=== PATIENT | male | born 1940 | race Caucasian/White ===

== ENCOUNTER 2016-08-15 08:19 | Inpatient (IN) | payer MEDICARE, OTHER ==
--- NOTE | 2016-08-15 09:11 | ER Document Report ---
ED General - General Mode of Arrival: Ambulatory Information source: Patient TRAVEL OUTSIDE OF THE [place] IN LAST 30 DAYS: No - HPI Patient complains to provider of: Left Facial Numbness Onset: Yesterday Onset/Duration: Sudden, Persistent Associated symptoms: Headache. denies: Chest pain, Shortness of breath, Weakness <CATIE PEREZ - Last Filed: 08/15/16 13:22> <ISAAC CIFUENTES - Last Filed: 08/15/16 21:22> - General Chief Complaint: Numbness of Face Stated Complaint: LEFT SIDE FACE NUMBNESS Notes: Patient is a 76-year-old male presenting to the emergency department concerned of left-sided facial numbness onset yesterday upon awakening. Patient denies any weakness, loss of consciousness, chest pain, or any difficulty breathing. Patient also admits to headache, intermittent dizziness, and some brief left eye blurred vision. Patient's was concerned because she states that the patient told her that he fell, but patient does not recall telling her this. (CATIE PEREZ) - Related Data Allergies/Adverse Reactions: No Known Allergies Allergy (Verified 08/15/16 08:22) Home Medications: Current Home Medications Albuterol Sulfate [Proair HFA] 1 puff IH Q4HP PRN 08/15/16 [History] Aspirin [Aspirin EC] 81 mg PO DAILY 08/15/16 [History] Citalopram Hydrobromide [Celexa 20 mg Tablet] 20 mg PO QHS 08/15/16 [History] Diazepam [Valium 5 mg Tablet] 5 mg PO DAILYP PRN 08/15/16 [History] Diazepam [Valium 5 mg Tablet] 5 mg PO QHS 08/15/16 [History] Esomeprazole Magnesium [Nexium] 40 mg PO QPM 08/15/16 [History] Losartan Potassium [Cozaar 25 mg Tablet] 25 mg PO DAILY 08/15/16 [History] Oxycodone HCl 20 mg PO Q6HP PRN 08/15/16 [History] Pravastatin Sodium [Pravachol] 40 mg PO QHS 08/15/16 [History] Prazosin HCl [Minipress] 2 mg PO QHS 08/15/16 [History] Temazepam [Restoril] 30 mg PO QHS 08/15/16 [History] Past Medical History - General Information source: Patient, Relative - Social History Smoking Status: Unknown if Ever Smoked Family History: Reviewed & Not Pertinent Patient has suicidal ideation: No Patient has homicidal ideation: No - Past Medical History Cardiac Medical History: Reports: Hx Heart Attack, Hx Hypercholesterolemia, Hx Hypertension Pulmonary Medical History: Reports: Hx COPD Renal/ Medical History: Denies: Hx Peritoneal Dialysis GI Medical History: Reports: Hx Gastroesophageal Reflux Disease Past Surgical History: Reports: Hx Abdominal Surgery - 3 hernias, Hx Appendectomy, Hx Orthopedic Surgery - Immunizations Hx Diphtheria, Pertussis, Tetanus Vaccination: Yes <CATIE PEREZ - Last Filed: 08/15/16 13:22> Review of Systems - Review of Systems Constitutional: No symptoms reported EENT: See HPI, Blurred vision - Left eye, now resolved Cardiovascular: See HPI, Dizziness. denies: Chest pain Respiratory: No symptoms reported. denies: Short of breath Gastrointestinal: No symptoms reported Genitourinary: No symptoms reported Male Genitourinary: No symptoms reported Musculoskeletal: No symptoms reported Skin: No symptoms reported Hematologic/Lymphatic: No symptoms reported Neurological/Psychological: See HPI, Headaches, Numbness - Left sided face. denies: Lost consciousness -: Yes All other systems reviewed and negative <CATIE PEREZ - Last Filed: 08/15/16 13:22> Physical Exam - General General appearance: Appears well, Alert - HEENT Head: Normocephalic, Atraumatic Eyes: Normal Pupils: PERRL - Respiratory Respiratory status: No respiratory distress Chest status: Nontender Breath sounds: Normal Chest palpation: Normal - Cardiovascular Rhythm: Regular Heart sounds: Normal auscultation Murmur: No - Abdominal Inspection: Normal Distension: No distension Bowel sounds: Normal Tenderness: Nontender - Back Back: Normal, Nontender - Extremities General upper extremity: Normal inspection, Nontender General lower extremity: Normal inspection, Nontender - Neurological Neuro grossly intact: Yes Cognition: Normal Aga Coma Scale Eye Opening: Spontaneous Strawberry Coma Scale Verbal: Oriented Strawberry Coma Scale Motor: Obeys Commands Strawberry Coma Scale Total: 15 Speech: Normal Cranial nerves: Normal Motor strength normal: LUE, RUE, LLE, RLE 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 - Psychological Associated symptoms: Normal affect, Normal mood - Skin Skin Temperature: Warm Skin Moisture: Dry Skin Color: Normal <CATIE PEREZ - Last Filed: 08/15/16 13:22> <ISAAC CIFUENTES - Last Filed: 08/15/16 21:22> - Vital signs Vitals: Temp Pulse Resp BP Pulse Ox 98.0 F 66 18 171/77 H 99 08/15/16 08:24 08/15/16 08:24 08/15/16 08:24 08/15/16 08:24 08/15/16 08:24 - Neurological Notes: No facial droop (CATIE PEREZ) Course - Laboratory Result Diagrams: 08/15/16 09:34 08/15/16 09:34 <CATIE PEREZ - Last Filed: 08/15/16 13:22> - Laboratory Result Diagrams: 08/15/16 09:34 08/15/16 09:34 <ISAAC CIFUENTES - Last Filed: 08/15/16 21:22> - Re-evaluation Re-evalutation: 08/15/16 12:16 I personally performed the services described in the documentation, reviewed and edited the documentation which was dictated to my scribe in my presence, and it accurately records my words and actions. Patient presents emergency Department with left-sided facial numbness tingling. States he woke up yesterday morning with those symptoms along with when he looked in the ear facial droop went to the urgent care they told him to follow back up today which she did when he went there today the doctor apologize and said to go straight to the ER. On examination he has slight decreased sensation no facial droop no slurred speech negative upper and lower extremity strength no acute weakness. Heart lungs abdomen no acute findings. Persistent symptoms to the left side of the face. Spoke with the hospice will admit him inpatient stroke workup further assessment and evaluation no acute Gonzalez's palsy on examination. (ISAAC CIFUENTES) - Vital Signs Vital signs: Temp Pulse Resp BP Pulse Ox 98.2 F 62 20 175/77 H 99 08/15/16 20:09 08/15/16 20:09 08/15/16 20:09 08/15/16 20:09 08/15/16 20:09 Critical Care Note - Critical Care Note Total time excluding time spent on procedures (mins): 45 <ISAAC CIFUENTES - Last Filed: 08/15/16 21:22> Discharge <CATIE PEREZ - Last Filed: 08/15/16 13:22> - Discharge Admitting Provider: Hospitalist Unit Admitted: IMCU <ISAAC CIFUENTES - Last Filed: 08/15/16 21:22> - Discharge Clinical Impression: CVA (cerebral vascular accident) Qualifiers: CVA mechanism: unspecified Qualified Code(s): I63.9 - Cerebral infarction, unspecified Scribe Documentation - Scribe Written by Scribe:: Catie Perez 08/15/2016 0911 acting as scribe for :: Devon <CATIE PEREZ - Last Filed: 08/15/16 13:22>
[2016-08-15 09:52] LABS: ABSOLUTE EOSINOPHILS # (AUTO) 0.3 10^3/uL (0.0-0.6); ABSOLUTE LYMPHOCYTES (AUTO) 1.5 10^3/uL (0.5-4.7); ABSOLUTE MONOCYTES (AUTO) 0.6 10^3/uL (0.1-1.4); ABSOLUTE NEUT (AUTO) 3.2 10^3/uL (1.7-8.2); BASOPHILS % (AUTO) 0.7 % (0-2); EOSINOPHILS % (AUTO) 5.3 % (0-6); HEMATOCRIT 43.1 % (37.9-51.0); HEMOGLOBIN 14.5 g/dL (13.5-17.0); HGB HCT DIFFERENCE 0.4; LYMPHOCYTES % (AUTO) 26.3 % (13-45); MEAN CORPUSCULAR HGB CONC 33.6 g/dL (32.0-36.0); MEAN CORPUSCULAR VOLUME 92 fl (80-97); RED BLOOD COUNT 4.67 10^6/uL (4.35-5.55); RED CELL DISTRIBUTION WIDTH 12.8 % (11.5-14.0); SEGMENTED NEUTROPHILS % (AUTO) 56.7 % (42-78); WHITE BLOOD COUNT 5.6 10^3/uL (4.0-10.5)
[2016-08-15 10:05] LABS: ANION GAP 10 (5-19); BLOOD UREA NITROGEN 18 mg/dL (7-20); CALCIUM 10.2 mg/dL (8.4-10.2); CARBON DIOXIDE 27 mmol/L (22-30); CHLORIDE 106 mmol/L (98-107); CREATINE KINASE 81 U/L (55-170); CREATININE RESULT 0.94 mg/dL (0.52-1.25); GLUCOSE 106 mg/dL (75-110); POTASSIUM 4.7 mmol/L (3.6-5.0); SODIUM 143.4 mmol/L (137-145)
[2016-08-15 10:17] LABS: TROPONIN I < 0.012 ng/mL
--- NOTE | 2016-08-15 13:11 | EKG REPORT ---
SEVERITY:- OTHERWISE NORMAL ECG - SINUS OR ECTOPIC ATRIAL RHYTHM : Confirmed by: Nicole Adkins MD 15-Aug-2016 13:11:13
[2016-08-15] MEDS ORDERED: HYDROCODONE/ACETAMINOPHEN 10-325 MG TABLET PO PRN (13:56)
[2016-08-15] MEDS ORDERED: MAGNESIUM HYDROXIDE SUSP 30 ML UDCUP PO PRN (13:56)
[2016-08-15] MEDS ORDERED: ACETAMINOPHEN 325 MG TABLET PO PRN (13:56)
[2016-08-15] MEDS ORDERED: HYDROCODONE/ACETAMINOPHEN 5-325 MG TABLET PO PRN (13:56)
[2016-08-15] MEDS ORDERED: ONDANSETRON HCL INJ/PF 4 MG/2 ML SDV IV PRN (13:56)
[2016-08-15] MEDS ORDERED: ENOXAPARIN SODIUM INJ 40 MG/0.4 ML DISP.SYRIN SUBCUT ONE (15:00)
--- NOTE | 2016-08-15 17:55 | PDOC H&P ---
History of Present Illness Admission Date/PCP: 08/15/16 13:56 IRMA DILL MD Patient complains of: Facial weakness and numbness History of Present Illness: SOFIA SHUKLA is a 76 year old male presents to the emergency department from home almost 24 hours after the onset of symptoms including facial numbness and tingling. He describes a loss of sensation across the left part of his face stopping midline just under his nose but includes the left side of his tongue and cheek. He denies vision changes but notes loss of hearing on the left as well. He denies rash, trauma including head strike, slurred speech, difficulty swallowing, coughing choking gagging, fevers, chills, chest pain, palpitations. Evaluation in the emergency department CT scan is negative but his symptoms persist and so we were asked to admit him for CVA evaluation. Past Medical History Cardiac Medical History: Reports: Myocardial Infarction, Hyperlipidema, Hypertension Pulmonary Medical History: Reports: Chronic Obstructive Pulmonary Disease (COPD) , Pneumonia Endocrine Medical History: Reports: Diabetes Mellitus Type 2 GI Medical History: Reports: Gastroesophageal Reflux Disease Psychiatric Medical History: Reports: Depression Past Surgical History Past Surgical History: Reports: Appendectomy, Orthopedic Surgery Social History Smoking Status: Former Smoker Last Time Smoked: 1969 Frequency of Alcohol Use: None Hx Recreational Drug Use: No Drugs: None Hx Prescription Drug Abuse: No - Advance Directive Resuscitation Status: Full Code Family History Family History: CAD - Mom in her 80s, CVA - Dad in his 70s Parental Family History Reviewed: Yes Children Family History Reviewed: Yes Sibling(s) Family History Reviewed.: Yes Medication/Allergy Home Medications: Atorvastatin Calcium 40 mg PO QHS 09/21/14 Azelastine HCl 2 spray NS BID 09/21/14 Carisoprodol 1 tab PO Q8H 09/21/14 Citalopram Hydrobromide [Celexa] 1 tab PO QHS 09/21/14 Diazepam [Valium 5 mg Tablet] 2.5 mg PO BID 09/21/14 Diazepam [Valium 5 mg Tablet] 5 mg PO QHS 09/21/14 Finasteride 5 mg PO DAILY 09/21/14 Ginkgo Biloba 120 mg PO DAILY 09/21/14 Lisinopril/Hydrochlorothiazide [Lisinopril-Hctz 10-12.5 mg Tab] 1 each PO DAILY 09/21/14 Omeprazole [Prilosec] 20 mg PO DAILY 09/21/14 Oxycodone HCl 15 mg PO Q6H 09/21/14 Prednisone [Deltasone 20 mg Tablet] 3 tab PO DAILY 4 Days 09/21/14 Sennosides/Docusate Sodium [Stool Soft-Stimulant Lax Tab] 1 each PO DAILY Temazepam 30 mg PO QHS 09/21/14 Allergies/Adverse Reactions: No Known Allergies Allergy (Verified 08/15/16 08:22) Review of Systems Constitutional: PRESENT: headache(s) - Left-sided, focal just above the amish described as dull aching, nonradiating without exacerbating or alleviating factors. ABSENT: chills, fever(s), weight gain, weight loss Eyes: ABSENT: visual disturbances Ears: PRESENT: as per HPI, hearing changes Cardiovascular: ABSENT: chest pain, dyspnea on exertion, edema, orthropnea, palpitations Respiratory: ABSENT: cough, hemoptysis Gastrointestinal: ABSENT: abdominal pain, constipation, diarrhea, hematemesis, hematochezia, nausea, vomiting Genitourinary: ABSENT: dysuria, hematuria Musculoskeletal: ABSENT: joint swelling Integumentary: ABSENT: rash, wounds Neurological: PRESENT: as per HPI. ABSENT: abnormal gait, abnormal speech, confusion, dizziness, focal weakness, syncope Psychiatric: ABSENT: anxiety, depression Endocrine: ABSENT: cold intolerance, heat intolerance, polydipsia, polyuria Hematologic/Lymphatic: ABSENT: easy bleeding, easy bruising Physical Exam Vital Signs: Temp Pulse Resp BP Pulse Ox 97.7 F 58 L 18 139/75 H 100 08/15/16 16:02 08/15/16 16:02 08/15/16 16:02 08/15/16 16:02 08/15/16 16:02 Intake & Output 08/14/16 08/15/16 08/16/16 06:59 06:59 06:59 Weight 70.76 kg PHYSICAL EXAM GENERAL: NAD; well developed, well nourished; no obese; alert and oriented to person, place, time, situation HEENT: normocephalic, atraumatic; EOMI, PERRLA, no conjunctival injection, no scleral icterus; oral mucosa moist, normal dentition; neck supple, no LAD, normal ROM; loss of hearing in Left ear RESPIRATORY: no accessory muscle use, no increased WOB, good air entry bilaterally; no wheezes, rales, rhonchi; no inspiratory crackles CARDIO: no JVD; RRR; no systolic murmur; no tachycardia VASCULAR: no carotid bruit; no abdominal bruit; no pallor; 2+ radial, DP pulse ; normal capillary refill GI: soft; nondistended; normal bowel sounds; no hepato spleno megaly; no rebound, rigidity, guarding; nontender NEURO: normal patella reflexes; normal motor function; no gait abnl's; no dysarthria; no nystagmus; tongue protrudes midline; normal finger to nose; able to cross midline with finger to ear; decreased sensation of the left scalp, face , tongue. Posterior oropharynx elevates symmetrically with phonation. MSK: 5/5 strength; normal ROM hips; ambulatory without assistance; no tenderness EXTREMITIES: no calf tender; no palpable cords in calf; no clubbing, cyanosis , pedal edema PSYCH: normal affect, normal mood SKIN: warm; moist; no petechiae; no telengectasias; no jaundice; no rash Results Impressions: Head CT 08/15/16 09:12 IMPRESSION: NORMAL BRAIN CT WITHOUT CONTRAST. Chest X-Ray 08/15/16 09:14 IMPRESSION: NO ACUTE RADIOGRAPHIC FINDING IN THE CHEST. Assessment & Plan - Diagnosis (1) CVA (cerebral vascular accident) Qualifiers: CVA mechanism: unspecified Qualified Code(s): I63.9 - Cerebral infarction, unspecified Is this a current diagnosis for this admission?: YesPlan: Admit to inpatient IMCU for evaluation of likely ischemic or embolic CVA given the persistent symptoms. My suspicion is high for a central lesion in her about the adebayo affecting cranial nerves. He takes a baby aspirin daily so will change to Plavix and start empiric high-dose statin therapy. Check MRI of the brain without contrast, carotid Dopplers, echocardiogram, am lipids, B12 levels and hemoglobin A1c, mag and phosphorus looking for correctable metabolic causes. Allow permissive hypertension for the first 48 hours. There are no focal motor deficits to warrant physical or occupational therapy at this time. (2) Hypertension Qualifiers: Hypertension type: essential hypertension Qualified Code(s): I10 - Essential (primary) hypertension Is this a current diagnosis for this admission?: YesPlan: Allow permissive hypertension. Treat only pressures greater than 190/100 or any that become symptomatic. (3) Hyperlipidemia Qualifiers: Hyperlipidemia type: unspecified Qualified Code(s): E78.5 - Hyperlipidemia, unspecified Is this a current diagnosis for this admission?: YesPlan: Check lipid panel in the morning. Start empiric high-dose statin therapy. - Time Time Spent: 50 to 70 Minutes Medications reviewed and adjusted accordingly: Yes Anticipated discharge: Home Within: within 48 hours - Inpatient Certification Medical Necessity: Significant Comorbidiites Make Outpatient Treatment Too Risky , Need For Continuous Telemetry Monitoring, Need for Neurological Checks, Risk of Complication if Not Cared For in Hospital
[2016-08-15] MEDS ORDERED: ATORVASTATIN CALCIUM 80 MG TABLET PO SCH (22:00)
[2016-08-15] MEDS: FAMOTIDINE 20 MG TABLET PO SCH (22:08)
[2016-08-16 05:03] LABS: ABSOLUTE EOSINOPHILS # (AUTO) 0.3 10^3/uL (0.0-0.6); ABSOLUTE MONOCYTES (AUTO) 0.8 10^3/uL (0.1-1.4); ABSOLUTE NEUT (AUTO) 3.8 10^3/uL (1.7-8.2); BASOPHILS % (AUTO) 0.5 % (0-2); EOSINOPHILS % (AUTO) 4.5 % (0-6); HEMATOCRIT 42.6 % (37.9-51.0); HEMOGLOBIN 14.5 g/dL (13.5-17.0); HGB HCT DIFFERENCE 0.9; LYMPHOCYTES % (AUTO) 28.6 % (13-45); MEAN CORPUSCULAR HEMOGLOBIN 31.4 pg (27.0-33.4); MEAN CORPUSCULAR VOLUME 92 fl (80-97); RED BLOOD COUNT 4.62 10^6/uL (4.35-5.55); RED CELL DISTRIBUTION WIDTH 13.1 % (11.5-14.0); SEGMENTED NEUTROPHILS % (AUTO) 55.4 % (42-78); WHITE BLOOD COUNT 6.9 10^3/uL (4.0-10.5)
[2016-08-16 05:19] LABS: CHOLESTEROL 173.71 mg/dL (0-200); Direct HDL 44 mg/dL (>40); TRIGLYCERIDES 196 mg/dL (<150)
[2016-08-16 05:30] LABS: DIRECT LDL 89 mg/dL (<100)
[2016-08-16 05:39] LABS: VLDL CHOLESTEROL 39.2 mg/dL (10-31)
[2016-08-16 07:48] LABS: PHOSPHORUS 3.6 mg/dL (2.5-4.5)
[2016-08-16] MEDS ORDERED: ENOXAPARIN SODIUM INJ 40 MG/0.4 ML DISP.SYRIN SUBCUT SCH (08:00)
[2016-08-16] MEDS ORDERED: CLOPIDOGREL BISULFATE 75 MG TABLET PO SCH (10:00)
[2016-08-16] MEDS: FAMOTIDINE 20 MG TABLET PO SCH (11:07)
--- NOTE | 2016-08-16 13:51 | XCELERA REPORT ---
[address] [address] Transthoracic Echocardiogram Report Name: SOFIA SHUKLA Age: 76 yrs Gender: Male : 1940 Patient Status: Inpatient Patient Location: [id number]\304\[id number] Study Date: 08/16/2016 08:48 AM Height: 65 in Weight: 156 lb BSA: 1.8 m2 Procedure: A complete two-dimensional transthoracic echocardiogram was performed (2D, M-mode, spectral and color flow Doppler). The study was technically adequate with some images being suboptimal in quality. Reason For Study: cva Ordering Physician: REINALDO SKAGGS Performed By: Kimberly Galaviz Interpretation Summary The left ventricular ejection fraction is normal. Doppler measurements suggest impaired left ventricular relaxation, which is associated with grade I/IV or mild diastolic dysfunction There is normal left ventricular wall thickness. The left ventricle is grossly normal size. Wall motion cannot be accurately commented on, but no definite regional wall motion abnormalities noted. The right ventricular systolic function is normal. The right atrium is normal. The left atrial size is normal. There is a mild amount of mitral regurgitation There is no mitral valve stenosis. No aortic regurgitation is present. There is no aortic valve stenosis There is a trace or physiologic amount of tricuspid regurgitation Tricuspid regurgitation jet envelope not well defined to measure RV systolic pressure accurately. The aortic root is not well visualized. The inferior vena cava appeared normal and decreased > 50% with respiration (RAP 5-10 mmHg) There is no pericardial effusion. No definite cardiac source of CVA/TIA noted on this particular trans- thoracic study. Consider MARIEL if clinically indicated. May consider mobile cardiac telemetry monitoring (MCT) for ruling out transient AFIB. MMode/2D Measurements \T\ Calculations RVDd: 2.7 cm LVIDd: 4.8 cm FS: 46.4 % Ao root diam: 3.0 cm IVSd: 0.77 cm LVIDs: 2.6 cm EDV(Teich): 109.3 ml LVPWd: 0.84 cm ESV(Teich): 24.4 ml Ao root area: 6.9 cm2 EF(Teich): 77.7 % LA dimension: 3.1 cm Doppler Measurements \T\ Calculations MV E max kristi: MV P1/2t max kristi: Ao V2 max: LV V1 max P.5 cm/sec 65.8 cm/sec 115.8 cm/sec 2.9 mmHg MV A max kristi: MV P1/2t: 85.5 msec Ao max PG: LV V1 max: 55.2 cm/sec 5.4 mmHg 85.7 cm/sec MV E/A: 1.2 MVA(P1/2t): 2.6 cm2 MV dec slope: 225.6 cm/sec2 PA V2 max: TR max kristi: 66.5 cm/sec 241.4 cm/sec PA max PG: TR max P.3 mmHg 1.8 mmHg Left Ventricle The left ventricle is grossly normal size. There is normal left ventricular wall thickness. The left ventricular ejection fraction is normal. Doppler measurements suggest impaired left ventricular relaxation, which is associated with grade I/IV or mild diastolic dysfunction. Wall motion cannot be accurately commented on, but no definite regional wall motion abnormalities noted. Right Ventricle The right ventricle is normal in size, thickness and function. There is normal right ventricular wall thickness. The right ventricular systolic function is normal. Atria The right atrium is normal. The left atrial size is normal. Interarterial septum not well visualized and not well dopplered. Cannot comment on ASD/PFO presence. Mitral Valve The mitral valve leaflets are sclerotic, but show no functional abnormalities. There is no mitral valve stenosis. There is a mild amount of mitral regurgitation. Aortic Valve The aortic valve is mildly calcified. There is no aortic valve stenosis. No aortic regurgitation is present. Tricuspid Valve The tricuspid valve is not well visualized, but is grossly normal. There is no tricuspid stenosis. There is a trace or physiologic amount of tricuspid regurgitation. Tricuspid regurgitation jet envelope not well defined to measure RV systolic pressure accurately. Pulmonic Valve The pulmonic valve is not well visualized. Great Vessels The aortic root is not well visualized. The inferior vena cava appeared normal and decreased > 50% with respiration (RAP 5-10 mmHg). Effusions There is no pericardial effusion. Incidental Findings No definite cardiac source of CVA/TIA noted on this particular trans- thoracic study. Consider MARIEL if clinically indicated. May consider mobile cardiac telemetry monitoring (MCT) for ruling out transient AFIB. : REINALDO SKAGGS > Sera Calvo
[2016-08-16 15:08] VITALS: BP 139/75
--- NOTE | 2016-08-16 15:12 | PDOC DISCHARGE SUMMARY ---
General - Admit/Disc Date/PCP Admission Date/Primary Care Provider: 08/15/16 13:56 IRMA DILL MD Discharge Date: 08/16/16 - Discharge Diagnosis (1) CVA (cerebral vascular accident) Is this a current diagnosis for this admission?: YesSummary: This seems the most likely diagnosis and I suspect it is simply too small for detection on MRI, given his deficits it would have to be central/cord lesion near or on cranial nerve which could easily be missed by MRI. Nevertheless, his symptoms are impoving and nearly resolved and we did find stenosis of the L> R carotid arteries (see doppler report). After much discussion with he and his , we have elected to escalate his care to Plavix and max dose of statin daily, f/u with his PCP for monitoring of his condition including LFTs and lipids and outpt referral to vascular surgery for evaluation of the 50-69% Left carotid stenosis and f/u carotid dopplers in 6-12 months. he is stable for d/c home at this time. due to the high stress nature of his work, I recommend he continue to convalesce at home through the weekend and return to work on Sunday , 08/21 without restrictions. he was counseled regarding s/s of stroke that should warrant immediate return to the ED for tPa evaluation and treatment, they state understanding and willingness to comply. (2) Hypertension Is this a current diagnosis for this admission?: YesSummary: well controlled on current regimen, goal is <125/85. (3) Hyperlipidemia Is this a current diagnosis for this admission?: YesSummary: lipid panel really not that bad, see results in chart, but will increase statin to max dose to stabilize plaque already formed. - Additional Information Resuscitation Status: Full Code Discharge Diet: Cardiac Discharge Activity: Activity As Tolerated - ok to return to work Monday 08/21 without restrictions Home Medications: Albuterol Sulfate [Proair HFA] 1 puff IH Q4HP PRN 08/15/16 Citalopram Hydrobromide [Celexa 20 mg Tablet] 20 mg PO QHS 08/15/16 Diazepam [Valium 5 mg Tablet] 5 mg PO DAILYP PRN 08/15/16 Diazepam [Valium 5 mg Tablet] 5 mg PO QHS 08/15/16 Esomeprazole Magnesium [Nexium] 40 mg PO QPM 08/15/16 Losartan Potassium [Cozaar 25 mg Tablet] 25 mg PO DAILY 08/15/16 Oxycodone HCl 20 mg PO Q6HP PRN 08/15/16 Prazosin HCl [Minipress] 2 mg PO QHS 08/15/16 Temazepam [Restoril] 30 mg PO QHS 08/15/16 Acetaminophen [Tylenol 325 mg Tablet] 650 mg PO Q4HP PRN tablet 08/16/16 Clopidogrel Bisulfate [Plavix 75 mg Tablet] 75 mg PO DAILY #30 tablet 08/16/16 Pravastatin Sodium [Pravachol] 80 mg PO QHS #30 08/16/16 History of Present Illness Patient complains of: left face weakness and numbness History of Present Illness: presents to the emergency department from home almost 24 hours after the onset of symptoms including facial numbness and tingling. Hospital Course Hospital Course: He describes a loss of sensation across the left part of his face stopping midline just under his nose but includes the left side of his tongue and cheek. He denies vision changes but notes loss of hearing on the left as well. He denies rash, trauma including head strike, slurred speech, difficulty swallowing , coughing choking gagging, fevers, chills, chest pain, palpitations. Evaluation in the emergency department CT scan is negative but his symptoms persist and so we were asked to admit him for CVA evaluation. his symptoms gradually improved and he never showed any motor deficits and no speech difficulties therefore no therapy indicated/warranted. he underwent extensive evaluation including MRI, CT head, carotid dopplers, echo and multiple lab tests looking for a source or preventable cause and really none found other than bilat L>R carotid artery stenosis. As a result, and after long discussion involving R&B, he has elected to escalate his care to Plavix and max dose statin. he symptoms improved dramatically and he is stable for d/c home at this time. fu wit [facility] in one week for outpt referral to vascular surgery; return to the ED <3hrs symptom onset for tPa eval/tx as indicated. he and his express no concerns to me about going home at this time. rx/s provided for the necessary meds. Physical Exam Vital Signs: Temp Pulse Resp BP Pulse Ox 98.6 F 71 18 126/69 H 98 08/16/16 11:05 08/16/16 14:00 08/16/16 12:00 08/16/16 12:00 08/16/16 12:00 Intake & Output 08/15/16 08/16/16 08/17/16 06:59 06:59 06:59 Intake Total 245 695 Balance 245 695 Weight 69.6 kg PHYSICAL EXAM GENERAL: NAD; well developed, well nourished; no obese; alert and oriented to person, place, time, situation HEENT: normocephalic, atraumatic; EOMI, PERRLA, no conjunctival injection, no scleral icterus; oral mucosa moist, neck supple, no LAD, normal ROM; persistent loss of hearing in Left ear RESPIRATORY: no accessory muscle use, no increased WOB, good air entry bilaterally; no wheezes, rales, rhonchi; no inspiratory crackles CARDIO: no JVD; RRR; no systolic murmur; no tachycardia VASCULAR: no carotid bruit; no abdominal bruit; no pallor; 2+ radial, DP pulse ; normal capillary refill GI: soft; nondistended; normal bowel sounds; no hepato spleno megaly; no rebound, rigidity, guarding; nontender NEURO: normal patella reflexes; normal motor function; no gait abnl's; no dysarthria; no nystagmus; tongue protrudes midline; normal finger to nose; able to cross midline with finger to ear; decreased sensation of the left scalp, face , tongue. Posterior oropharynx elevates symmetrically with phonation. MSK: 5/5 strength; normal ROM hips; ambulatory without assistance; no tenderness EXTREMITIES: no calf tender; no palpable cords in calf; no clubbing, cyanosis , pedal edema PSYCH: normal affect, normal mood SKIN: warm; moist; no petechiae; no telengectasias; no jaundice; no rash Results Laboratory Results: 08/16/16 04:02 08/16/16 08/16/16 08/16/16 04:02 04:02 04:02 WBC 6.9 RBC 4.62 Hgb 14.5 Hct 42.6 MCV 92 MCH 31.4 MCHC 34.0 RDW 13.1 Plt Count 230 Seg Neutrophils % 55.4 Lymphocytes % 28.6 Monocytes % 11.0 Eosinophils % 4.5 Basophils % 0.5 Absolute Neutrophils 3.8 Absolute Lymphocytes 2.0 Absolute Monocytes 0.8 Absolute Eosinophils 0.3 Absolute Basophils 0.0 Phosphorus 3.6 Magnesium Triglycerides 196 H Cholesterol 173.71 LDL Cholesterol Direct 89 VLDL Cholesterol 39.2 H HDL Cholesterol 44 Vitamin B12 581.0 08/16/16 04:02 WBC RBC Hgb Hct MCV MCH MCHC RDW Plt Count Seg Neutrophils % Lymphocytes % Monocytes % Eosinophils % Basophils % Absolute Neutrophils Absolute Lymphocytes Absolute Monocytes Absolute Eosinophils Absolute Basophils Phosphorus Magnesium 1.8 Triglycerides Cholesterol LDL Cholesterol Direct VLDL Cholesterol HDL Cholesterol Vitamin B12 Impressions: Head MRI 08/15/16 00:00 IMPRESSION: NO ACUTE ISCHEMIA, HEMORRHAGE, OR MASS LESION. NO SIGNIFICANT CHANGE FROM PRIOR STUDIES. Head CT 08/15/16 09:12 IMPRESSION: NORMAL BRAIN CT WITHOUT CONTRAST. Chest X-Ray 08/15/16 09:14 IMPRESSION: NO ACUTE RADIOGRAPHIC FINDING IN THE CHEST. Carotid Doppler Study 08/16/16 00:00 IMPRESSION: Right: Less than 50% stenosis of the ICA. Left: 50-69% stenosis of the ICA, closer to 50%. Qualifiers PATEINT BEING DISCHARGED WITH ANY OF THE FOLLOWING DIAGNOSIS?: Stroke Stroke Pt being discharged on Anti-thrombolytic therapy?: Yes Stroke Pt being discharged on Anti-coagulation therapy?: No Reason(s) for not prescribing Anti-coagulation therapy:: Not indicated Stroke Pt being discharged on Statins?: Yes Plan Discharge Plan: d/c home as instructed above; see above discourse for details Time Spent: Greater than 30 Minutes
--- NOTE | 2016-08-17 15:38 | EKG REPORT ---
SEVERITY:- NORMAL ECG - SINUS RHYTHM : Confirmed by: Nicole Adkins MD 17-Aug-2016 15:37:17
== END 2016-08-16 16:00 | disposition home or self-care (01) | DRG 66 ==
LOC: ER 08:19 → UNDOADMIN 12:46 → EH 12:46 → 3N 15:37
PROVIDERS: ADMIT Internal Medicine; ATTEND Internal Medicine
DX: I63.9 Cerebral infarction, unspecified (principal); E78.5 Hyperlipidemia, unspecified; I10 Essential (primary) hypertension; K21.9 Gastro-esophageal reflux disease without esophagitis; I65.23 Occlusion and stenosis of bilateral carotid arteries; E11.9 Type 2 diabetes mellitus without complications; J44.9 Chronic obstructive pulmonary disease, unspecified; F32.9 Major depressive disorder, single episode, unspecified; I25.2 Old myocardial infarction; Z87.891 Personal history of nicotine dependence; Z79.82 Long term (current) use of aspirin; Z79.899 Other long term (current) drug therapy
CPT/HCPCS: 36415; 70450; 70551; 71010; 80048; 80061; 82550; 82607; 83036; 83735; 83880; 84100; 84484; 85025; 93005; 93010; 93306; 93880; 99291; G8996-GN; G8997-GN; G8998-GN; J1650; J3490

== ENCOUNTER 2016-12-22 19:46 | Emergency (ER) | payer MEDICARE, OTHER ==
[2016-12-22 21:24] LABS: ABSOLUTE EOSINOPHILS # (AUTO) 0.1 10^3/uL (0.0-0.6); ABSOLUTE LYMPHOCYTES (AUTO) 2.3 10^3/uL (0.5-4.7); ABSOLUTE MONOCYTES (AUTO) 1.9 10^3/uL (0.1-1.4); ABSOLUTE NEUT (AUTO) 10.8 10^3/uL (1.7-8.2); BASOPHILS % (AUTO) 0.2 % (0-2); EOSINOPHILS % (AUTO) 0.7 % (0-6); HEMOGLOBIN 13.4 g/dL (13.5-17.0); HGB HCT DIFFERENCE 0.2; LYMPHOCYTES % (AUTO) 14.9 % (13-45); MEAN CORPUSCULAR HEMOGLOBIN 31.9 pg (27.0-33.4); MEAN CORPUSCULAR HGB CONC 33.6 g/dL (32.0-36.0); MEAN CORPUSCULAR VOLUME 95 fl (80-97); MONOCYTES % (AUTO) 12.6 % (3-13); RED BLOOD COUNT 4.22 10^6/uL (4.35-5.55); RED CELL DISTRIBUTION WIDTH 12.3 % (11.5-14.0); SEGMENTED NEUTROPHILS % (AUTO) 71.6 % (42-78); WHITE BLOOD COUNT 15.2 10^3/uL (4.0-10.5)
--- NOTE | 2016-12-22 21:27 | RADIOLOGY REPORT (SQ) ---
EXAM DESCRIPTION: CHEST SINGLE VIEW COMPLETED DATE/TIME: 12/22/2016 9:18 pm REASON FOR STUDY: SOB, cough COMPARISON: 08/15/2016 EXAM PARAMETERS: NUMBER OF VIEWS: One view. TECHNIQUE: Single frontal radiographic view of the chest acquired. RADIATION DOSE: NA LIMITATIONS: None. FINDINGS: LUNGS AND PLEURA: Vague right upper lobe parenchymal opacity. Left lung is clear. MEDIASTINUM AND HILAR STRUCTURES: No masses. Contour normal. HEART AND VASCULAR STRUCTURES: Heart normal in size. Normal vasculature. BONES: No acute findings. HARDWARE: None in the chest. OTHER: No other significant finding. IMPRESSION: Right upper lobe pneumonia. TECHNICAL DOCUMENTATION: JOB ID: [id number]
[2016-12-22 21:29] LABS: APPEARANCE,URINE CLEAR; BILIRUBIN,URINE NEGATIVE (NEGATIVE); GLUCOSE, URINE NEGATIVE (NEGATIVE); KETONES,URINE NEGATIVE (NEGATIVE); LEUKOCYTE ESTERASE,URINE NEGATIVE (NEGATIVE); NITRITE,URINE NEGATIVE (NEGATIVE); PROTEIN,URINE NEGATIVE (NEGATIVE); URINE SPECIFIC GRAVITY 1.006; UROBILINOGEN,URINE NEGATIVE mg/dL (<2.0)
[2016-12-22 21:30] LABS: ADD ON TESTING BLD IN LAB ACKNOWLEDGE
--- NOTE | 2016-12-22 21:35 | ER Document Report ---
HPI - HPI Pain Level: 5 Notes: Patient is a 76-year-old male who presents the ED complaining of fever, dry semi -productive cough, general body ache, shortness of breath, weakness/fatigue, and urinary frequency 1 week. His fever high was 101 prior to arrival, which is the only time they checked his temp. patient also states that he has a mild frontal headache. The headache does not radiate. Patient states that his headache mimics the time before when he had a TIA 5 months ago. Patient states that he is on Plavix currently. Patient states that he has not been eating or drinking as well as usual, but has no problems keeping them down. Patient denies any burning with urination, retention, or hematuria. Past medical history otherwise significant for hypertension, coronary artery disease, and carotid artery stenosis. Denies any other recent travel, illness, or sick contact exposure. Denies any neck pain/stiffness, changes in vision/speech/ mentation/hearing, nasal robi/discharge, sore throat, chest pain, palpitations, syncope, wheeze, dyspnea, abdominal pain, nausea/vomiting/diarrhea, urinary retention, dysuria, hematuria, loss of control of bowel or bladder, numbness/ tingling, saddle anesthesia, muscle paralysis/weakness, or rash. + former smoker. Denies drug use. - ROS Notes: REVIEW OF SYSTEMS: CONSTITUTIONAL : see hpi EENT: Denies eye, ear, throat, or mouth pain or symptoms. Denies nasal or sinus congestion or discharge. Denies throat, tongue, or mouth swelling or difficulty swallowing. CARDIOVASCULAR: Denies chest pain. Denies palpitations or racing or irregular heart beat. Denies ankle edema. RESPIRATORY: see hpi GASTROINTESTINAL: Denies abdominal pain or distention. Denies nausea, vomiting , or diarrhea. Denies blood in vomitus, stools, or per rectum. Denies black, tarry stools. Denies constipation. GENITOURINARY: see hpi MUSCULOSKELETAL: + general body ache. Denies back or neck pain or stiffness. Denies joint pain or swelling. SKIN: Denies rash, lesions or sores. NEUROLOGICAL: Denies confusion or altered mental status. Denies passing out or loss of consciousness. Denies dizziness or lightheadedness. Denies headache. Denies weakness or paralysis or loss of use of either side. Denies problems with gait or speech. Denies sensory loss, numbness, or tingling. ALL OTHER SYSTEMS REVIEWED AND NEGATIVE. Dictation was performed using [employer] voice recognition software - DERM Skin Color: Normal Past Medical History - Social History Smoking Status: Former Smoker Family History: CAD - Mom in her 80s, CVA - Dad in his 70s Patient has suicidal ideation: No Patient has homicidal ideation: No - Past Medical History Cardiac Medical History: Reports: Hx Heart Attack, Hx Hypercholesterolemia, Hx Hypertension Pulmonary Medical History: Reports: Hx COPD, Hx Pneumonia Endocrine Medical History: Reports: Hx Diabetes Mellitus Type 2 Renal/ Medical History: Denies: Hx Peritoneal Dialysis GI Medical History: Reports: Hx Gastroesophageal Reflux Disease Psychiatric Medical History: Reports: Hx Depression Past Surgical History: Reports: Hx Abdominal Surgery - 3 hernias, Hx Appendectomy, Hx Orthopedic Surgery - Immunizations Hx Diphtheria, Pertussis, Tetanus Vaccination: Yes Hx Pneumococcal Vaccination: 02/12/16 Vertical Provider Document - CONSTITUTIONAL Agree With Documented VS: Yes Notes: PHYSICAL EXAMINATION: GENERAL: Well-appearing, well-nourished and in no acute distress. HEAD: Atraumatic, normocephalic. EYES: Pupils equal round and reactive to light, extraocular movements intact, sclera anicteric, conjunctiva are normal. ENT: EAC clear b/l. TM's intact b/l without erythema, fluid, or perforation. Nares patent and without discharge. oropharynx clear without exudates. tonsils absent. Moist mucous membranes. No sinus tenderness. NECK: Normal range of motion, supple without lymphadenopathy. No rigidity/ meningismus. No obvious bruits. LUNGS: breath sounds slightly distant sounding, No wheezes rales or rhonchi. HEART: Regular rate and rhythm without murmurs, rubs, gallops. ABDOMEN: Soft, nontender, nondistended abdomen. No guarding, no rebound. No masses appreciated. Normal bowel sounds present. No CVA tenderness bilaterally. Musculoskeletal: Ext b/l: FROM to passive/active. Strength 5+/5. No focal deficits Extremities: No cyanosis, clubbing, or edema b/l. Peripheral pulses 2+. Capillary refill less than 3 seconds. NEUROLOGICAL: MMSE intact. Cranial nerves grossly intact. Normal speech, normal gait. Normal sensory, motor exams. Reflexes 2+ b/l. LIA's negative. Pronator drift negative. Heel/lovett, finger/nose wnl. Walking on heels/toes and heel to toe wnl. GCS 15. NIH 0. PSYCH: Normal mood, normal affect. SKIN: Warm, Dry, normal turgor, no rashes or lesions noted. - INFECTION CONTROL TRAVEL OUTSIDE OF THE [place] IN LAST 30 DAYS: No - RESPIRATORY O2 Sat by Pulse Oximetry: 96 Course - Re-evaluation Re-evalutation: 12/22/16 23:36 Patient is currently an afebrile, well-hydrated, 76-year-old male who presents to the ED with a right upper lobe pneumonia. His vitals are stable. His oxygen saturations are 97% on room air. PE otherwise unremarkable time. Patient was given a DuoNeb breathing treatment along with 125 mg Solu-Medrol and Levaquin 750 mg p.o. His CBC did show a white count of 15,000 without any gross left shift. His CMP was unremarkable. Urine was unremarkable. 1 L normal saline was given today as well. Patient states that he does feel much better than when he arrived and is feeling stronger than he has been although he still has some mild weakness. Patient states that he feels he is able to go home for outpatient therapy risks/benefits understood. I will send him home with continued prescription for Levaquin to take and finish as directed along with an albuterol inhaler. Low suspicion for any ACS, pericarditis, pneumothorax, PE, or dissection at this time. Patient in agreement to recheck with his PCM in 2-3 days. Return to the ED with any worsening/concerning symptoms otherwise as reviewed in discharge. Patient is in agreement. - Vital Signs Vital signs: Temp Pulse Resp BP Pulse Ox 99.6 F 94 18 147/73 H 96 12/22/16 19:55 12/22/16 19:55 12/22/16 19:55 12/22/16 19:55 12/22/16 19:55 - Laboratory Result Diagrams: 12/22/16 21:09 12/22/16 21:09 Laboratory results interpreted by me: 12/22/16 21:09 WBC 15.2 H RBC 4.22 L Hgb 13.4 L Absolute Neutrophils 10.8 H Absolute Monocytes 1.9 H Discharge - Discharge Clinical Impression: Right upper lobe pneumonia Qualifiers: Pneumonia type: due to unspecified organism Qualified Code(s): J18.1 - Lobar pneumonia, unspecified organism Condition: Stable Disposition: HOME, SELF-CARE Instructions: Pneumonia ([facility]), Levofloxacin, Acetaminophen Additional Instructions: Maintain adequate fluid intake Take meds as directed tylenol/ibuprofen as needed over the counter cold medication as needed for symptoms Humidified air may help Use inhaler as needed/directed F/u: with your PCM in 2-3 days for a recheck Return to the ED with any worsening symptoms and/or development of fever, headache, chest pain, palpitations, syncope, increasing shortness of breath, trouble breathing, abdominal pain, n/v/d, blood in stool/urine, or other worsening symptoms that are concerning to you. Prescriptions: Albuterol Sulfate [Proair HFA Inhalation Aerosol 8.5 gm MDI] 2 puff IH Q4H PRN # 1 mdi PRN Reason: Levofloxacin [Levaquin 750 mg Tablet] 750 mg PO DAILY #4 tablet Forms: Elevated Blood Pressure Referrals: PULMONOLOGY [Provider Group] - Follow up as needed [facility] [Provider Group] - Follow up in 3-5 days
[2016-12-22 21:44] LABS: ALANINE AMINOTRANSFERASE 31 U/L (21-72); ALBUMIN 4.5 g/dL (3.5-5.0); ALKALINE PHOSPHATASE 84 U/L (38-126); ANION GAP 13 (5-19); ASPARTATE AMINO TRANSFERASE 30 U/L (17-59); BILIRUBIN,DIRECT 0.3 mg/dL (0.0-0.4); BLOOD UREA NITROGEN 17 mg/dL (7-20); CALCIUM 9.8 mg/dL (8.4-10.2); CARBON DIOXIDE 25 mmol/L (22-30); CHLORIDE 102 mmol/L (98-107); CREATINE KINASE 95 U/L (55-170); CREATININE RESULT 1.06 mg/dL (0.52-1.25); GLUCOSE 92 mg/dL (75-110); SODIUM 140.3 mmol/L (137-145); TOTAL PROTEIN 7.4 g/dL (6.3-8.2)
[2016-12-22 21:55] LABS: CREATINE KINASE MB 0.83 ng/mL (<4.55)
[2016-12-22 21:56] LABS: TROPONIN I < 0.012 ng/mL
--- NOTE | 2016-12-22 22:01 | RADIOLOGY REPORT (SQ) ---
EXAM DESCRIPTION: CT HEAD WITHOUT COMPLETED DATE/TIME: 12/22/2016 9:42 pm REASON FOR STUDY: headache COMPARISON: 08/15/2016 TECHNIQUE: Axial images acquired through the brain without intravenous contrast. Images reviewed wi th bone, brain and subdural windows. Images stored on PACS. All CT scanners at this facility use dose modulation, iterative reconstruction, and/or weight based d osing when appropriate to reduce radiation dose to as low as reasonably achievable (ALARA). [facility]: Dose Right [facility]: CareDose [facility]: Dose Right [facility]: Teradose 4D [facility]: [employer] RADIATION DOSE: Up-to-date CT equipment and radiation dose reduction techniques were employed. CTDIv ol: 64.6 mGy. DLP: 1163 mGy-cm. mGy. LIMITATIONS: None. FINDINGS: VENTRICLES: Normal size and contour. CEREBRUM: No masses. No hemorrhage. No midline shift. Normal arita/white matter differentiation. N o evidence for acute infarction. CEREBELLUM: No masses. No hemorrhage. No alteration of density. No evidence for acute infarction. EXTRAAXIAL SPACES: No fluid collections. No masses. ORBITS AND GLOBE: No intra- or extraconal masses. Normal contour of globe without masses. CALVARIUM: No fracture. PARANASAL SINUSES: Moderate chronic ethmoid and frontal sinus disease. SOFT TISSUES: No mass or hematoma. OTHER: No other significant finding. IMPRESSION: NORMAL BRAIN CT WITHOUT CONTRAST. Sinus disease. TECHNICAL DOCUMENTATION: JOB ID: [id number] Quality ID # [id number]: Final reports with documentation of one or more dose reduction techniques (e.g., Au tomated exposure control, adjustment of the mA and/or kV according to patient size, use of iterative reconstruction technique) 2010 [employer]- All Rights Reserved
[2016-12-22] MEDS ORDERED: IPRATROPIUM/ALBUTEROL 0.5-2.5 MG/3 ML AMPUL NEB ONE (22:06)
[2016-12-22] MEDS ORDERED: NORMAL SALINE 1000 ML 1,000 ML IV ONE (22:07)
[2016-12-22] MEDS ORDERED: LEVOFLOXACIN 750 MG TABLET PO ONE (22:14)
[2016-12-22] MEDS ORDERED: METHYLPREDNISOLONE INJ 125 MG/2 ML SDV IV ONE (22:14)
--- NOTE | 2016-12-22 22:45 | EKG REPORT ---
SEVERITY:- NORMAL ECG - SINUS RHYTHM : Confirmed by: Sera Calvo 22-Dec-2016 22:45:10
[2016-12-23 00:20] VITALS: BP 150/81
== END 2016-12-23 00:06 | disposition home or self-care (01) ==
LOC: ER 19:46
DX: J18.1 Lobar pneumonia, unspecified organism (principal); R50.9 Fever, unspecified; R05 Cough; M79.1 Myalgia; R06.02 Shortness of breath; R53.1 Weakness; R53.83 Other fatigue; R35.0 Frequency of micturition; Z87.891 Personal history of nicotine dependence
CPT/HCPCS: 93005; 94640; 99285; 96361; 96374; 36415; 82553; 82550; 83735; 85025; 80053; 81001; 84484; 71010; 70450; 93010; J2930; J7030; A9270 ×2; J7620

== ENCOUNTER 2018-08-13 11:59 | Emergency (ER) | payer MEDICARE, OTHER ==
[2018-08-13] MEDS ORDERED: IPRATROPIUM/ALBUTEROL 0.5-2.5 MG/3 ML AMPUL NEB ONE ×2 (12:17→14:44)
--- NOTE | 2018-08-13 12:20 | ER Document Report ---
ED Medical Screen (RME) - General Chief Complaint: Shortness Of Breath Stated Complaint: SHORTNESS OF BREATH Time Seen by Provider: 08/13/18 12:12 TRAVEL OUTSIDE OF THE [place] IN LAST 30 DAYS: No - HPI Notes: 08/13/18 12:18 Patient is a 78-year-old male with a history of NH, CAD, hypertension, hypercholesterolemia, COPD, pneumonia, diabetes who presents the emergency department complaining of nasal congestion/discharge, subjective fever, sore throat, productive cough over the last week with development of chest tightness and shortness of breath this morning. Denies any headache, neck pain, palpitati ons, syncope, abdominal pain, nausea/vomiting/diarrhea, urinary retention, dysuria, hematuria, or rash. I have treated and performed a rapid initial assessment of this patient. A comprehensive ED assessment and evaluation of the patient, analysis of test results and completion of medical decision making process will be conducted by additional ED providers. PHYSICAL EXAMINATION: GENERAL: Well-appearing, well-nourished and in no acute distress. A&Ox4. Answers questions appropriately. LUNGS: Mild rhonchi and scant wheezes noted. No retractions. HEART: Regular rate and rhythm without murmurs, rubs, gallops. Extremities: No cyanosis, clubbing, or edema b/l. NEUROLOGICAL: Normal speech, normal gait. PSYCH: Normal mood, normal affect. - Related Data Allergies/Adverse Reactions: No Known Allergies Allergy (Verified 08/13/18 12:00) Past Medical History - Past Medical History Cardiac Medical History: Reports: Hx Heart Attack, Hx Hypercholesterolemia, Hx Hypertension Pulmonary Medical History: Reports: Hx COPD, Hx Pneumonia Endocrine Medical History: Reports: Hx Diabetes Mellitus Type 2 Renal/ Medical History: Denies: Hx Peritoneal Dialysis GI Medical History: Reports: Hx Gastroesophageal Reflux Disease Psychiatric Medical History: Reports: Hx Depression Past Surgical History: Reports: Hx Abdominal Surgery - 3 hernias, Hx Appendectomy, Hx Orthopedic Surgery - Immunizations Hx Diphtheria, Pertussis, Tetanus Vaccination: Yes Physical Exam - Vital signs Vitals: Temp Pulse Resp BP Pulse Ox 97.8 F 88 20 129/83 H 95 08/13/18 12:02 08/13/18 12:02 08/13/18 12:02 08/13/18 12:02 08/13/18 12:02 Course - Vital Signs Vital signs: Temp Pulse Resp BP Pulse Ox 97.8 F 88 20 129/83 H 95 08/13/18 12:02 08/13/18 12:02 08/13/18 12:02 08/13/18 12:02 08/13/18 12:02
[2018-08-13 12:57] LABS: ABSOLUTE EOSINOPHILS # (AUTO) 0.4 10^3/uL (0.0-0.6); ABSOLUTE MONOCYTES (AUTO) 0.9 10^3/uL (0.1-1.4); ABSOLUTE NEUT (AUTO) 3.1 10^3/uL (1.7-8.2); BASOPHILS % (AUTO) 0.7 % (0-2); EOSINOPHILS % (AUTO) 6.6 % (0-6); HEMATOCRIT 42.3 % (37.9-51.0); HEMOGLOBIN 14.6 g/dL (13.5-17.0); LYMPHOCYTES % (AUTO) 31.2 % (13-45); MEAN CORPUSCULAR HEMOGLOBIN 32.2 pg (27.0-33.4); MEAN CORPUSCULAR HGB CONC 34.5 g/dL (32.0-36.0); MEAN CORPUSCULAR VOLUME 93 fl (80-97); MONOCYTES % (AUTO) 13.9 % (3-13); PLATELET COUNT 296 10^3/uL (150-450); RED BLOOD COUNT 4.54 10^6/uL (4.35-5.55); RED CELL DISTRIBUTION WIDTH 12.8 % (11.5-14.0); SEGMENTED NEUTROPHILS % (AUTO) 47.6 % (42-78); TOTAL CELLS COUNTED % (AUTO) 100 %; WHITE BLOOD COUNT 6.6 10^3/uL (4.0-10.5)
[2018-08-13 13:19] LABS: ALANINE AMINOTRANSFERASE 46 U/L (21-72); ALBUMIN 4.4 g/dL (3.5-5.0); ALKALINE PHOSPHATASE 96 U/L (38-126); ANION GAP 10 (5-19); ASPARTATE AMINO TRANSFERASE 46 U/L (17-59); BILIRUBIN,DIRECT 0.3 mg/dL (0.0-0.4); BILIRUBIN,TOTAL 0.6 mg/dL (0.2-1.3); BLOOD UREA NITROGEN 20 mg/dL (7-20); CALCIUM 9.8 mg/dL (8.4-10.2); CARBON DIOXIDE 27 mmol/L (22-30); CHLORIDE 105 mmol/L (98-107); GLUCOSE 99 mg/dL (75-110); POTASSIUM 4.6 mmol/L (3.6-5.0); SODIUM 141.6 mmol/L (137-145); TOTAL PROTEIN 7.3 g/dL (6.3-8.2)
[2018-08-13 13:29] LABS: NT PRO BNP 36 pg/mL (<450)
[2018-08-13 13:31] LABS: TROPONIN I < 0.012 ng/mL
--- NOTE | 2018-08-13 13:31 | EKG REPORT ---
SEVERITY:- OTHERWISE NORMAL ECG - SINUS OR ECTOPIC ATRIAL RHYTHM : Confirmed by: Danielito Mgchee MD 13-Aug-2018 13:30:12
--- NOTE | 2018-08-13 13:41 | RADIOLOGY REPORT (SQ) ---
EXAM DESCRIPTION: CHEST SINGLE VIEW COMPLETED DATE/TIME: 08/13/2018 1:00 pm REASON FOR STUDY: sob COMPARISON: 08/15/2016 EXAM PARAMETERS: NUMBER OF VIEWS: One view. TECHNIQUE: Single frontal radiographic view of the chest acquired. RADIATION DOSE: NA LIMITATIONS: None. FINDINGS: LUNGS AND PLEURA: No opacities, masses or pneumothorax. No pleural effusion. MEDIASTINUM AND HILAR STRUCTURES: No masses. Contour normal. HEART AND VASCULAR STRUCTURES: Heart normal in size. Normal vasculature. BONES: No acute findings. HARDWARE: None in the chest. OTHER: No other significant finding. IMPRESSION: 1. No significant interval changes since the previous examination dated 08/15/2016. No a cute findings. TECHNICAL DOCUMENTATION: JOB ID: [id number] [employer]- All Rights Reserved Reading location - IP/workstation name: [email or web address]
--- NOTE | 2018-08-13 18:07 | ER Document Report ---
ED Respiratory Problem - General Chief Complaint: Shortness Of Breath Stated Complaint: SHORTNESS OF BREATH Time Seen by Provider: 08/13/18 18:07 Primary Care Provider: SIRENA PATTERSON MD [Primary Care Provider] - Follow up as needed Mode of Arrival: Ambulatory Information source: Patient Notes: HISTORY OF PRESENT ILLNESS: Patient is a 78-year-old male with a past medical history of coronary artery disease and a previous smoker who presents with cough congestion with chest tightness that began 1 week ago, patient also reported fever previously but today improved. However, his cough is persistent. Location: Chest Onset: 1 week Alleviation: None Provocation: None Quality: Nonproductive cough Radiation: None Severity: Mild to moderate Timing: Constant History of CAD: Yes Associated symptoms: Previous fevers now resolved, denies shortness of breath, does report mild sore throat with dysphagia REVIEW OF SYSTEMS: CONSTITUTIONAL : Positive for fever but no chills or sweats. Denies recent illness. EENT: Denies eye, ear, throat, or mouth pain or symptoms. Denies nasal or sinus congestion. CARDIOVASCULAR: Denies chest pain. Denies swelling of the legs. RESPIRATORY: Positive for cough, cold, and chest congestion. Denies shortness of breath or difficulty breathing. Denies wheezing. GASTROINTESTINAL: Denies abdominal pain. Denies nausea, vomiting, or diarrhea. Denies constipation. GENITOURINARY: Denies difficulty urinating, painful urination, burning, frequency, or blood in urine. MUSCULOSKELETAL: Denies neck or back pain or joint pain or swelling. SKIN: Denies rash or skin lesions. HEMATOLOGIC : Denies easy bruising or bleeding. LYMPHATIC: Denies swollen, enlarged glands. NEUROLOGICAL: Denies altered mental status or loss of consciousness. Denies headache. Denies weakness or paralysis or loss of use of either side. Denies problems with gait or speech. Denies sensory or motor loss. PSYCHIATRIC: Denies anxiety or stress or depression. All other systems reviewed and negative. PHYSICAL EXAMINATION: GENERAL: Well-appearing, well-nourished and in no acute distress. HEAD: Atraumatic, normocephalic. No scalp deformity, depression, or crepitance. EYES: Pupils are 3 mm and equal/round/reactive to light, extraocular movements intact, sclera anicteric, conjunctiva are normal. ENT: Nares patent bilaterally, oropharynx. Moist mucous membranes. No tonsil hypertrophy. NECK: Normal range of motion, supple without lymphadenopathy. LUNGS: Breath sounds present and equal bilaterally with faint occasional wheezes and rhonchi that clear with coughing. No rales or crackles. HEART: Regular rate and rhythm without murmurs, rubs, or gallops. 2+ peripheral pulses. Normal capillary refill. ABDOMEN: Soft, nontender, nondistended. Normoactive bowel sounds. No guarding, no rebound. No masses appreciated. BACK: Normal contour, no midline tenderness. Rectal exam deferred. GENITAL/PELVIC: Deferred. EXTREMITIES: Normal range of motion, no pitting or edema. No cyanosis. NEUROLOGICAL: No focal neurological deficits. Moves all extremities spontaneously and on command. PSYCH: Normal mood, normal affect. No suicidal thoughts/ideations. No homocidal thoughts/ideations. No hallucinations. SKIN: Warm, dry, normal turgor, no rashes or lesions noted. ASSESSMENT AND PLAN: This patient is a 78-year-old male who presents with cough and congestion that most likely represents viral syndrome versus bronchitis versus atypical pneumonia. 1. Blood work is normal, including normal white blood cell count and troponin. Chest x-ray negative for acute lobar pneumonia. 2. Given symptomology, will treat for bronchitis versus atypical pneumonia with oral azithromycin and steroids. 3. We will discharge home with return precautions and follow-up with his primary physician in 1 week. Patient voices both understanding and agreeing with the plan. TRAVEL OUTSIDE OF THE [place] IN LAST 30 DAYS: No - Related Data Allergies/Adverse Reactions: No Known Allergies Allergy (Verified 08/13/18 12:00) Past Medical History - General Information source: Patient - Social History Smoking Status: Former Smoker Chew tobacco use (# tins/day): No Frequency of alcohol use: None Drug Abuse: None Lives with: Family Family History: CAD - Mom in her 80s, CVA - Dad in his 70s Patient has suicidal ideation: No Patient has homicidal ideation: No - Past Medical History Cardiac Medical History: Reports: Hx Heart Attack, Hx Hypercholesterolemia, Hx Hypertension Pulmonary Medical History: Reports: Hx COPD, Hx Pneumonia EENT Medical History: Reports: None Neurological Medical History: Reports: None Endocrine Medical History: Reports: Hx Diabetes Mellitus Type 2 Renal/ Medical History: Reports: None. Denies: Hx Peritoneal Dialysis Malignancy Medical History: Reports None GI Medical History: Reports: Hx Gastroesophageal Reflux Disease Musculoskeletal Medical History: Reports None Skin Medical History: Reports None Psychiatric Medical History: Reports: Hx Depression Traumatic Medical History: Reports: None Infectious Medical History: Reports: None Past Surgical History: Reports: Hx Abdominal Surgery - 3 hernias, Hx Appendectomy, Hx Orthopedic Surgery - Immunizations Hx Diphtheria, Pertussis, Tetanus Vaccination: Yes Hx Pneumococcal Vaccination: 02/12/16 Physical Exam - Vital signs Vitals: Temp Pulse Resp BP Pulse Ox 97.8 F 88 20 129/83 H 95 08/13/18 12:02 08/13/18 12:02 08/13/18 12:02 08/13/18 12:02 08/13/18 12:02 Course - Vital Signs Vital signs: Temp Pulse Resp BP Pulse Ox 97.8 F 88 12 120/92 H 98 08/13/18 12:02 08/13/18 12:02 08/13/18 13:01 08/13/18 13:01 08/13/18 13:01 - Laboratory Result Diagrams: 08/13/18 12:36 08/13/18 12:36 Laboratory results interpreted by me: 08/13/18 12:36 Monocytes % 13.9 H Eosinophils % 6.6 H - Diagnostic Test Radiology reviewed: Image reviewed, Reports reviewed - EKG Interpretation by Ma EKG shows normal: Sinus rhythm Rate: Normal Rhythm: NSR [place]/QRS: No: Right axis deviation, Left axis deviation, RBBB, LBBB, IVCD, LAHB/LAFB, LPHB/LPFB, Bifasicular block Voltage: No: Increased voltage, Consistant with LVH, Decreased voltage, Throughout, Limb leads P Waves: No: ANJUM, LAE, Absent, AV Dissociation, Other Heart block present: No: 1st Degree, Mobitz 1, Mobitz 2, CHB (3rd degree block) When compared to previous EKG there are: No significant change Discharge - Discharge Clinical Impression: Atypical pneumonia, Respiratory tract congestion with cough Condition: Good Disposition: HOME, SELF-CARE Instructions: Pneumonia ([facility]) Additional Instructions: You have been evaluated in the Emergency Department for cough and congestion. While here, you had blood work that was normal and a chest x-ray that did not show a lobar pneumonia; however, his symptoms may be consistent with an atypical pneumonia and it is now safe to be discharged home. Please follow-up with your primary physician as instructed in 1 week to be rechecked. Return to the Emergency Department if you experience shortness of breath, chest pain, uncontrollable fevers, or any other concerning symptoms. Prescriptions: Azithromycin [Zithromax 250 mg Tablet] 250 mg PO ASDIR PRN #6 tablet PRN Reason: Hydrocodone/Chlorphen P-Stirex [Tussionex Pennkinetic Susp] 5 ml PO BID #120 [id number].er.12h Methylprednisolone [Medrol Dosepack (4 mg/Tab) 21 Tab/Dosepak] 4 mg PO ASDIR PRN #21 tab.ds.pk PRN Reason: Referrals: SIRENA PATTERSON MD [Primary Care Provider] - Follow up as needed Print Language: Syrian
[2018-08-13] MEDS ORDERED: PREDNISONE 20 MG TABLET PO ONE (18:41)
[2018-08-13] MEDS ORDERED: AZITHROMYCIN 250 MG TABLET PO ONE (18:41)
[2018-08-13 19:38] VITALS: BP 159/85
== END 2018-08-13 19:37 | disposition home or self-care (01) ==
LOC: ER 11:59
DX: J18.9 Pneumonia, unspecified organism (principal); R09.89 Other specified symptoms and signs involving the circulatory and respiratory systems; R07.89 Other chest pain; R06.02 Shortness of breath; I25.10 Atherosclerotic heart disease of native coronary artery without angina pectoris; I25.2 Old myocardial infarction; E78.00 Pure hypercholesterolemia, unspecified; I10 Essential (primary) hypertension; E11.9 Type 2 diabetes mellitus without complications
CPT/HCPCS: 93005; 94640; 99285; 36415; 87070; 87880; 85025; 80053; 84484; 83880; 71045; 93010; A9270 ×3; J7512; J7620

== ENCOUNTER 2019-01-12 20:28 | Emergency (ER) | payer MEDICARE, OTHER ==
[2019-01-12] MEDS ORDERED: ACETAMINOPHEN 325 MG TABLET PO ONE (20:58)
--- NOTE | 2019-01-12 21:03 | ER Document Report ---
ED Medical Screen (RME) - General Chief Complaint: S/S of Possible Stroke Stated Complaint: SEVERE HEADACHE Time Seen by Provider: 01/12/19 20:57 Primary Care Provider: SIRENA PATTERSON MD [Primary Care Provider] - Follow up as needed TRAVEL OUTSIDE OF THE [place] IN LAST 30 DAYS: No - HPI Notes: 01/12/19 20:58 Patient is a 78-year-old male with a history of HTN, TIA (on plavix) who presents complaining of severe headache that started last night. Patient states that it has eased off today. Patient states that he was mowing his tractor when a branch hit the right side of his face and flipped him off of his tractor. Patient is not aware of any other specific injury, but later that evening started having left-sided headache with a subconjunctival hemorrhage to the left eye. Patient did notice his blood pressure was higher than normal. Patient states that he has had some decreased sensation to his left face. Denies fever, URI, CP, SOB, Abd pain, dysuria, back pain, or rash. I have treated and performed a rapid initial assessment of this patient. A comprehensive ED assessment and evaluation of the patient, analysis of test results and completion of medical decision making process will be conducted by additional ED providers. PHYSICAL EXAMINATION: GENERAL: Well-appearing, well-nourished and in no acute distress. A&Ox4. Answers questions appropriately. HEAD: Atraumatic, normocephalic. Non-tender. No charles sign Face: there is an abrasion rt cheek area. EYES: Pupils equal round and reactive to light, extraocular movements intact, sclera anicteric, + left subconjunctival hemorrhage. No raccoon eyes/entrapment ENT: EAC clear b/l. TM's intact b/l without erythema, fluid, or perforation. Nares patent and without discharge. oropharynx clear without exudates. No tonsilar hypertrophy or erythema. Moist mucous membranes. No sinus tenderness. No hemotympanum/CSF discharge. NECK: + mild midline tenderness. Chest: no seatbelt sign. No flail chest. equal rise/fall. Non-tender LUNGS: Breath sounds clear to auscultation bilaterally and equal. No wheezes rales or rhonchi. HEART: Irregular rhythm noted with palp and auscultation. ekg ordered ABDOMEN: Soft, nontender, nondistended abdomen. No guarding, no rebound. Normal bowel sounds present. No CVA tenderness bilaterally. Musculoskeletal: Ext b/l: FROM to passive/active. Strength 5+/5. No deficits noted. No bony tenderness of extremities. Back: FROM to passive/active. Strength 5+/5. No vertebral point tenderness, stepoffs, or deformities. No other bony tenderness or ecchymosis. SLR negative b/l. Extremities: No cyanosis, clubbing, or edema b/l. Peripheral pulses 2+. Capillary refill less than 2 seconds. NEUROLOGICAL: NIH 1 for dec sensation left face. GCS 15. Cranial nerves grossly intact. Normal speech, normal gait. Normal sensory, motor exams. Reflexes 2+ b/l. LIA's negative. Pronator drift negative. Heel/lovett, finger/nose wnl. PSYCH: Normal mood, normal affect. SKIN: Warm, Dry, normal turgor, no rashes or lesions noted. - Related Data Allergies/Adverse Reactions: No Known Allergies Allergy (Verified 08/13/18 12:00) Past Medical History - Past Medical History Cardiac Medical History: Reports: Hx Heart Attack, Hx Hypercholesterolemia, Hx Hypertension Pulmonary Medical History: Reports: Hx COPD, Hx Pneumonia Endocrine Medical History: Reports: Hx Diabetes Mellitus Type 2 Renal/ Medical History: Denies: Hx Peritoneal Dialysis GI Medical History: Reports: Hx Gastroesophageal Reflux Disease Psychiatric Medical History: Reports: Hx Depression Past Surgical History: Reports: Hx Abdominal Surgery - 3 hernias, Hx Appendectomy, Hx Orthopedic Surgery - Immunizations Hx Diphtheria, Pertussis, Tetanus Vaccination: Yes Physical Exam - Vital signs Vitals: Temp Pulse Resp BP Pulse Ox 97.4 F 56 L 15 182/71 H 100 01/12/19 20:42 01/12/19 20:42 01/12/19 20:42 01/12/19 20:42 01/12/19 20:42 Course - Vital Signs Vital signs: Temp Pulse Resp BP Pulse Ox 97.4 F 56 L 15 182/71 H 100 01/12/19 20:42 01/12/19 20:42 01/12/19 20:42 01/12/19 20:42 01/12/19 20:42 Doctor's Discharge - Discharge Referrals: SIRENA PATTERSON MD [Primary Care Provider] - Follow up as needed
[2019-01-12 21:54] LABS: INTERNATIONAL RATION (INR) 1.09; PROTHROMBIN TIME 14.1 SEC (11.4-15.4)
[2019-01-12 21:55] LABS: PARTIAL THROMBOPLASTIN TIME 30.9 SEC (23.5-35.8)
[2019-01-12 21:56] LABS: ABSOLUTE EOSINOPHILS # (AUTO) 0.5 10^3/uL (0.0-0.6); ABSOLUTE LYMPHOCYTES (AUTO) 3.3 10^3/uL (0.5-4.7); ABSOLUTE NEUT (AUTO) 5.5 10^3/uL (1.7-8.2); BASOPHILS % (AUTO) 0.5 % (0-2); EOSINOPHILS % (AUTO) 4.6 % (0-6); HEMATOCRIT 41.4 % (37.9-51.0); HEMOGLOBIN 14.3 g/dL (13.5-17.0); MEAN CORPUSCULAR HEMOGLOBIN 31.5 pg (27.0-33.4); MEAN CORPUSCULAR HGB CONC 34.5 g/dL (32.0-36.0); MEAN CORPUSCULAR VOLUME 92 fl (80-97); MONOCYTES % (AUTO) 9.7 % (3-13); PLATELET COUNT 271 10^3/uL (150-450); RED BLOOD COUNT 4.53 10^6/uL (4.35-5.55); RED CELL DISTRIBUTION WIDTH 12.8 % (11.5-14.0); SEGMENTED NEUTROPHILS % (AUTO) 53.2 % (42-78); TOTAL CELLS COUNTED % (AUTO) 100 %; WHITE BLOOD COUNT 10.3 10^3/uL (4.0-10.5)
--- NOTE | 2019-01-12 22:00 | RADIOLOGY REPORT (SQ) ---
CT BRAIN AND CERVICAL SPINE EXAM DATE: 01/12/2019 8:57 PM CDT HISTORY: Trauma. COMPARISON: None. TECHNIQUE: CT scan of the brain and cervical spine without IV contrast. This exam was performed according to our departmental dose-optimization program, which includes automated exposure control, adjustment of the mA and/or kV according to patient size and/or use of iterative reconstruction technique. FINDINGS: BRAIN: The ventricles, cisterns, and sulci are age-appropriate. No evidence of acute infarction, intracranial hemorrhage, extra-axial fluid collection, or midline shift. Partial opacification of a few bilateral ethmoid air cells. No depressed skull fracture. CERVICAL SPINE: No acute cervical fracture or prevertebral soft tissue swelling. There is straightening of the normal cervical lordosis, which may be due to cervical collar, muscle spasm, or patient positioning. Multilevel degenerative disc disease along with facet arthropathy is present. There are multilevel disc bulges but without advanced canal stenosis identified. IMPRESSION: 1. No acute intracranial hemorrhage. 2. No acute fracture or subluxation of the cervical spine.
--- NOTE | 2019-01-12 22:01 | RADIOLOGY REPORT (SQ) ---
XR CHEST 1 VIEW EXAM DATE: 01/12/2019 8:57 PM CDT HISTORY: Arrhythmia. COMPARISON: 08/13/2018 FINDINGS: The heart size is within normal limits. No consolidation, pleural effusion, or pneumothorax is seen. Mild atelectasis at the left lung base. The bony thorax is intact. IMPRESSION: No evidence of acute cardiopulmonary disease.
[2019-01-12 22:09] LABS: ALBUMIN 4.7 g/dL (3.5-5.0); ALKALINE PHOSPHATASE 87 U/L (38-126); ANION GAP 11 (5-19); ASPARTATE AMINO TRANSFERASE 49 U/L (17-59); BILIRUBIN,DIRECT 0.2 mg/dL (0.0-0.4); BILIRUBIN,TOTAL 0.4 mg/dL (0.2-1.3); BLOOD UREA NITROGEN 20 mg/dL (7-20); CALCIUM 9.6 mg/dL (8.4-10.2); CARBON DIOXIDE 25 mmol/L (22-30); CHLORIDE 103 mmol/L (98-107); GLUCOSE 96 mg/dL (75-110); POTASSIUM 4.2 mmol/L (3.6-5.0); TOTAL PROTEIN 7.4 g/dL (6.3-8.2)
[2019-01-12] MEDS ORDERED: MAGNESIUM SULFATE/D5W 1 GM/100 ML RTUPB IV ONE (22:14)
[2019-01-12] MEDS ORDERED: ONDANSETRON HCL INJ/PF 4 MG/2 ML SDV IV ONE (22:14)
--- NOTE | 2019-01-12 22:36 | EKG REPORT ---
SEVERITY:- ABNORMAL ECG - SINUS RHYTHM BORDERLINE T ABNORMALITIES, INFERIOR LEADS : Confirmed by: Danielito Mcghee MD 12-Jan-2019 22:35:37
[2019-01-13 01:03] VITALS: BP 113/74
--- NOTE | 2019-01-13 05:33 | ER Document Report ---
Entered by MARIA E YU SCRIBE 01/12/19 [id number] Acting as scribe for:BRODY SORIA DO ED Fall - General Chief Complaint: S/S of Possible Stroke Stated Complaint: SEVERE HEADACHE Time Seen by Provider: 01/12/19 20:57 Primary Care Provider: SIRENA PATTERSON MD [Primary Care Provider] - Follow up in 3-5 days Mode of Arrival: Ambulatory Notes: Patient is a 78-year-old male on plavix who presents to the emergency department today with complaints of "blood in the left eye" and a headache resulting from a tractor accident yesterday. Patient states he was struck in the head with a tree branch while riding around on a tractor yesterday. Patient reports having a headache last night that was relieved with Aleve. Patient reports when he woke up this morning he had the headache again. Patient mentions left facial numbness which is chronic. Patient also complains of neck pain which he admits is chronic as well. TRAVEL OUTSIDE OF THE [place] IN LAST 30 DAYS: No - Related data Allergies/Adverse Reactions: No Known Allergies Allergy (Verified 08/13/18 12:00) Past Medical History - General Information source: Patient - Social History Smoking Status: Former Smoker Cigarette use (# per day): No Chew tobacco use (# tins/day): No Frequency of alcohol use: None Drug Abuse: None Lives with: Family Family History: CAD - Mom in her 80s, CVA - Dad in his 70s Patient has suicidal ideation: No Patient has homicidal ideation: No - Past Medical History Cardiac Medical History: Reports: Hx Heart Attack, Hx Hypercholesterolemia, Hx Hypertension Pulmonary Medical History: Reports: Hx COPD, Hx Pneumonia Endocrine Medical History: Reports: Hx Diabetes Mellitus Type 2 GI Medical History: Reports: Hx Gastroesophageal Reflux Disease Psychiatric Medical History: Reports: Hx Depression Past Surgical History: Reports: Hx Abdominal Surgery - 3 hernias, Hx Appendectomy, Hx Orthopedic Surgery - Immunizations Hx Diphtheria, Pertussis, Tetanus Vaccination: Yes Hx Pneumococcal Vaccination: 02/12/16 Review of Systems - Review of Systems Constitutional: No symptoms reported EENT: See HPI, Other - left eye redness Cardiovascular: No symptoms reported Respiratory: No symptoms reported Gastrointestinal: No symptoms reported Genitourinary: No symptoms reported Male Genitourinary: No symptoms reported Musculoskeletal: No symptoms reported Skin: No symptoms reported Hematologic/Lymphatic: No symptoms reported Neurological/Psychological: See HPI, Headaches, Numbness - left, chronic -: Yes All other systems reviewed and negative Physical Exam - Vital signs Vitals: Temp Pulse Resp BP Pulse Ox 97.4 F 56 L 15 182/71 H 100 01/12/19 20:42 01/12/19 20:42 01/12/19 20:42 01/12/19 20:42 01/12/19 20:42 - Notes Notes: Physical Exam: General: Alert, appears well. HEENT: Normocephalic. Abrasion to the right side of the face just lateral to the right eyebrow. PERRL. Extraocular movements intact. Oropharynx clear. Neck: Supple. Non-tender. Respiratory: No respiratory distress. Clear and equal breath sounds bilaterally. Cardiovascular: Regular rate and rhythm. Abdominal: Normal Inspection. Non-tender. No distension. Normal Bowel Sounds. Back: No gross abnormalities. Extremities: Moves all four extremities. Upper extremities: Normal inspection. Normal ROM. Lower extremities: Normal inspection. No edema. Normal ROM. Neurological: Normal cognition. AAOx4. Normal speech. Psychological: Normal affect. Normal Mood. Skin: Warm. Dry. Normal color. Course - Re-evaluation Re-evalutation: 01/13/19 05:31 Patient is a 78-year-old male who was mowing the lawn and fell off of his riding mower. Complaining of a headache. Headache completely resolved with medications. Patient's resting heart rate is 50s to 60s from prior records. He feels better and would like to go home. No acute findings on imaging or blood work. Patient did have some chest pressure. EKG within normal limits. Troponin negative x2. Stable for discharge. Follow-up with PMD. Grateful for care. Understands agrees with plan. - Vital Signs Vital signs: Temp Pulse Resp BP Pulse Ox 97.4 F 56 L 12 113/74 100 01/12/19 20:42 01/12/19 21:33 01/13/19 01:01 01/13/19 01:00 01/13/19 01:01 - Laboratory Result Diagrams: 01/12/19 21:26 01/12/19 21:26 Discharge - Discharge Clinical Impression: Chest pressure Closed head injury Qualifiers: Encounter type: initial encounter Qualified Code(s): S09.90XA - Unspecified injury of head, initial encounter Headache Qualifiers: Headache type: unspecified Headache chronicity pattern: acute headache Intractability: not intractable Qualified Code(s): R51 - Headache Condition: Stable Disposition: HOME, SELF-CARE Instructions: Chest Pain of Unclear Cause ([facility]), Head Injury Precautions ([facility]) Prescriptions: Ondansetron [Zofran Odt 4 mg Tablet] 1 tab PO Q6HP PRN #15 tab.rapdis PRN Reason: For Nausea/Vomiting Referrals: SIRENA PATTERSON MD [Primary Care Provider] - Follow up in 3-5 days I personally performed the services described in the documentation, reviewed and edited the documentation which was dictated to the scribe in my presence, and it accurately records my words and actions.
--- NOTE | 2019-01-14 23:23 | EKG REPORT ---
SEVERITY:- OTHERWISE NORMAL ECG - SINUS OR ECTOPIC ATRIAL RHYTHM : Confirmed by: Sera Calvo 14-Jan-2019 23:22:57
== END 2019-01-13 01:58 | disposition home or self-care (01) ==
LOC: ER 20:28
DX: S00.81XA Abrasion of other part of head, initial encounter (principal); R51 Headache; W22.8XXA Striking against or struck by other objects, initial encounter; W17.89XA Other fall from one level to another, initial encounter; Y93.H9 Activity, other involving exterior property and land maintenance, building and construction; H57.9 Unspecified disorder of eye and adnexa; R07.89 Other chest pain; R20.0 Anesthesia of skin; M54.2 Cervicalgia; G89.29 Other chronic pain; I10 Essential (primary) hypertension; I25.2 Old myocardial infarction; J44.9 Chronic obstructive pulmonary disease, unspecified; E11.9 Type 2 diabetes mellitus without complications; Z87.891 Personal history of nicotine dependence; Z79.02 Long term (current) use of antithrombotics/antiplatelets
CPT/HCPCS: 93005 ×2; 99284; 96375; 96365; 36415; 85025; 85610; 85730; 80053; 84484; 71045; 70450; 72125; 93010 ×2; A9270; J3475; J2405